=== PATIENT | female | born 2000 | race Caucasian/White ===

== ENCOUNTER 2022-11-18 12:33 | Emergency (ER) | payer BC ==
[~2022-11-18] VITALS: Ht 154.9 cm; Wt 51.0 kg
[2022-11-18 12:49] VITALS: BP 138/91
[2022-11-18] MEDS ORDERED: ONDANSETRON 4 MG TAB PO ONE (14:00)
[2022-11-18] MEDS ORDERED: ONDA-188 SL (14:00)
--- NOTE | 2022-11-18 14:31 | NUR ---
21 Y/O FEMALE BIB SELF C/O DIZZINESS AND [id number], PER PT SHE HIT THE BACK OF HER HEAD DURING SNOW [id number] AGO. SINCE SHE'S STATING THAT SHE'S HAVING NAUSEA. DENIES ANY BLURRING OF VISION, SOB, INTRACTABLE VOMITING OR LOC. NKA PMH: DENIES
--- NOTE | 2022-11-18 14:50 | NUR ---
Patient discharged with v/s stable. Written and verbal after care instructions ABOUT HEAD INJURY, TRAUMATIC BRAIN INJURY given and explained. Patient alert, oriented and verbalized understanding of instructions. Ambulatory with steady gait. All questions addressed prior to discharge. ID band removed. Patient advised to follow up with PMD. Rx of ZOFRAN given. Patient educated on indication of medication including possible reaction and side effects. Opportunity to ask questions provided and answered.
== END 2022-11-18 14:50 | disposition home or self-care (01) ==
LOC: MED 12:33
DX: S09.90XA Unspecified injury of head, initial encounter (principal); W18.30XA Fall on same level, unspecified, initial encounter; Y93.23 Activity, snow (alpine) (downhill) skiing, snowboarding, sledding, tobogganing and snow tubing; Y92.89 Other specified places as the place of occurrence of the external cause; Y99.8 Other external cause status
CPT/HCPCS: 70450; 99284; Q0162